=== PATIENT | female | born 1980 | race Caucasian/White ===

== ENCOUNTER 2022-05-31 02:28 | Emergency (ER) | payer OTHER ==
[~2022-05-31] VITALS: Ht 170.2 cm; Wt 90.9 kg
[2022-05-31 02:48] VITALS: BP 125/80
[2022-05-31] MEDS ORDERED: TETANUS-DIPTH-ACEL PERTUSSIS 0.5ML SYR Tdap IM ONE (03:30)
[2022-05-31] MEDS ORDERED: ACETAMINOPHEN 325 MG TAB PO ONE (04:15)
== END 2022-05-31 04:21 | disposition home or self-care (01) ==
LOC: ER 02:32
DX: S61.214A Laceration without foreign body of right ring finger without damage to nail, initial encounter (principal); W26.8XXA Contact with other sharp object(s), not elsewhere classified, initial encounter; Y93.89 Activity, other specified; Y92.89 Other specified places as the place of occurrence of the external cause; Y99.8 Other external cause status
CPT/HCPCS: 12001; 90471; 90715

== ENCOUNTER 2024-09-09 03:38 | Emergency (ER) | payer OTHER ==
[~2024-09-09] VITALS: Ht 170.2 cm; Wt 114.1 kg
[2024-09-09] MEDS: SODIUM CHLORIDE 0.9% 1,000 ML IV ONE (03:45)
[2024-09-09 03:57] VITALS: BP 141/75; RESP 18; TEMP 98.1; O2SAT 97
[2024-09-09 04:13] VITALS: PULSE 88
--- NOTE | 2024-09-09 04:13 | ED.PDOC ---
History of Present Illness HPI Comments 43 year old female presents to ER with complaints of flu-like symptoms x 3 days. Patient reports that she has been experiencing dry cough, congestion, intermittent nausea and sore throat x 3 days with associated dizziness that started 2 hours prior to arrival to ER while she was walking upstairs in her house to go to sleep. She reports 7/10 sore throat pain, denying any other current pain. Denies use of medications for current symptoms. Patient presents to ER ambulatory on arrival, alert and oriented x4, with steady gait, in no distress. Denies headache, vision changes, confusion, neck pain, vomiting, shortness of breath, chest pain, palpitations, syncope, hemoptysis, abdominal pain, changes in urination/bm or any further symptoms/complaints Chief Complaint: Flu like Time Seen by MD: 03:56 Primary Care Provider: UNKNOWN Reviewed Notes: Nurses Notes, Medications, Allergies Past Medical History PAST MEDICAL HISTORY: Anxiety, Seizures (epilepsy) Past Medical History (Other): migraines Surgical History: Cholecystectomy, NEWSP[employer]GING [employer] History: Denies all NEWSP[employer]ER MANAGING [employer]OR Hx Family History Family History: Unknown Social History Smoker: Non-Smoker Alcohol: Denies ETOH Use Drugs: Denies Drug Use Lives In: Home Constitutional: No Symptoms Reported EENTM: See HPI Respiratory: See HPI Cardiovascular: No Symptoms Reported Gastrointestinal: See HPI Genitourinary: No Symptoms Reported Neurological: Other (As stated in HPI) Musculoskeletal: No Symptoms Reported Integumentary: No Symptoms Reported Allergic/Immunocompromised: others Hematologic/Lymphatic: No Symptoms Reported Endocrine: No Symptoms Reported Psychiatric: No symptoms Reported Physical Exam General Appearance: No Apparent Distress HEENT: Normal ENT Inspection, PERRL/EOMI, Pharynx Normal, TMs Normal Neck: Full Range of Motion, Non-Tender, Normal Respiratory: Chest Non-Tender, Lungs Clear, No Accessory Muscle Use, No Respiratory Distress, Normal Breath Sounds Cardiovascular: No Murmur, No Gallop, Regular Rate/Rhythm Breast Exam: Deferred Gastrointestinal: NOT DONE Genitalia: Deferred Pelvic: Deferred Rectal: Deferred Extremities: Normal capillary refill, Normal range of motion Neurologic: Alert, assembler watch train II-XII nml as Tested, No Motor Deficits, Normal Affect, Normal Mood, No Sensory Deficits Cerebellar Function: Normal Reflexes: Normal Skin: Dry, Normal Color, Warm Peripheral Pulses: 2+ Radial (R), 2+ Radial (L), 2+ Brachial (R), 2+ Brachial (L) Lymphatic: No Adenopathy Was a procedure done? Was a procedure done?: No Sedation Sedation?: No EKG EKG : Pulse Rate (adult): 88 Cardiac Rhythm: NSR (SR) Fever Differential Dx Differential Diagnosis: Pneumonia, Pulmonary Embolus, Sepsis, Pharyngitis, Other (COVID-19, INFLUENZA, [place]) X-Ray, Labs, Meds, VS Vital Signs Date Time Temp Pulse Resp B/P (MAP) Pulse Ox O2 Delivery O2 Flow Rate FiO2 09/09/24 04:13 88 09/09/24 04:08 88 09/09/24 03:57 98.1 98 18 141/75 (97) 97 98.1 09/09/24 03:57 98.1 98 18 141/75 (97) 97 Lab Test 09/09/24 04:30 09/09/24 04:19 09/09/24 04:05 09/09/24 03:54 Range/Units Urine Color Light-yellow Yellow Urine Clarity Clear Clear Urine pH 6.0 5.0-9.0 Urine Specific [place] 1.016 1.001-1.035 Urine Protein Negative Negative Urine Ketones Negative Negative Urine Blood Negative Negative /uL Urine Nitrite Negative Negative Urine Bilirubin Negative Negative Urine Urobilinogen Normal Negative mg/dL Urine Leukocyte Esterase Negative Negative /uL Urine RBC 2 0 - 4 /hpf Urine Microscopic WBC 1 0-5 /HPF Urine Squamous Epithelial Cells Few <5 /hpf Urine Bacteria Few H None Seen /hpf Urine Glucose Normal Normal mg/dL White Blood Count 10.1 4.4-10.8 10^3/uL Red Blood Count 4.25 4.0-5.20 10^6/uL Hemoglobin 13.4 12.2-16.2 g/dL Hematocrit 39.6 36.0-46.0 % Mean Corpuscular Volume 93.1 80.0-100.0 fL Mean Corpuscular Hemoglobin 31.5 28.0-32.0 pg Mean Corpuscular Hemoglobin Concent 33.8 32.0-36.0 g/dL Red Cell Distribution Width 13.5 11.8-14.3 % Platelet Count 358 140-450 10^3/uL Mean Platelet Volume 6.3 L 6.9-10.8 fL Neutrophils (%) (Auto) 59.6 37.0-80.0 % Lymphocytes (%) (Auto) 34.3 10.0-50.0 % Monocytes (%) (Auto) 4.1 0.0-12.0 % Eosinophils (%) (Auto) 1.6 0.0-7.0 % Basophils (%) (Auto) 0.4 0.0-2.0 % Neutrophils # (Auto) 6.0 1.6-8.6 10 ^3/uL Lymphocytes # (Auto) 3.5 0.4-5.4 10 ^3/uL Monocytes # (Auto) 0.4 0-1.3 10 ^3/uL Eosinophils # (Auto) 0.2 0-0.8 10 ^3/uL Basophils # (Auto) 0 0-0.2 10 ^3/uL Nucleated Red Blood Cells 0.1 % Sodium Level 138 136-145 mmol/L Potassium Level 3.6 3.5-5.1 mmol/L Chloride Level 105 98-107 mmol/L Carbon Dioxide Level 24 20-31 mmol/L Anion Gap 9 5-15 Blood Urea Nitrogen 13 9-23 mg/dL Creatinine 0.80 0.550-1.02 mg/dL Glomerular Filtration Rate Calc 93 >90 mL/min BUN/Creatinine Ratio 16.3 10.0-20.0 Serum Glucose 110 H 74-106 mg/dL Calcium Level 9.3 8.7-10.4 mg/dL Troponin I High Sensitivity < 3 L </=34 ng/L Influenza Type A Antigen Negative Negative Influenza Type B Antigen Negative Negative SARS-CoV-2 Antigen (Rapid) Negative NEGATIVE POC Glucose 115 H 70-106 mg/dl Current Medications Medications (Trade) Dose Ordered Sig/[place] Route Start Time Stop Time Status Last Admin Sodium Chloride 1,000 ml @ 1,000 mls/hr Q1H ONCE IV 09/09/24 04:00 09/09/24 04:59 DC 09/09/24 03:45 Meclizine HCl (Antivert Tablet) 50 mg ONCE ONCE PO 09/09/24 04:00 09/09/24 04:02 DC 09/09/24 05:17 Acetaminophen (Tylenol Tablet) 650 mg ONCE ONCE PO 09/09/24 04:00 09/09/24 04:02 DC 09/09/24 05:17 PATIENT: YULIYA REYNOSO B[place]TONT: [id number]: [id number] : 1980 LOC: ER ROOM / BED: / AGE / SEX: 43 / F ADM STATUS: REG ER SERVICE [id number] ORDERING PHYSICIAN: OBDULIO HYMAN PROCEDURE(s): CXR1 - CHEST XRAY 1 VIEW REASON: cough ORDER NUMBER(s): [id number], ACCESSION NUMBER(s): [id number] EXAM: XR Chest, 1 View CLINICAL INDICATION: cough TECHNIQUE: Frontal view of the chest. COMPARISON: None FINDINGS: LUNGS AND PLEURAL SPACES: Unremarkable. No consolidation. No pneumothorax. HEART: Unremarkable. No cardiomegaly. MEDIASTINUM: Unremarkable. Normal mediastinal contour. BONES/JOINTS: Unremarkable. No acute fracture. OTHER FINDINGS: . . IMPRESSION: No acute cardiopulmonary process. ATED BY: LANDY MCCALLUM MD DICTATED DATE/TIME: 09/09/24503 SIGNED BY: LANDY MCCALLUM MD SIGNED DATE/TIME: 09/09/24503 CC: CBC AND BMP REVIEWED WITHOUT ANY SIGNIFICANT ABNORMALITY CHEST X-RAY REVIEWED SWAB RESULTS REVIEWED- NEGATIVE URINALYSIS REVIEWED WITHOUT ANY SIGNIFICANT ABNORMALITIES EKG REVIEWED TROPONIN REVIEWED - NEGATIVE HEP LOCK IV ORDERED NS 1 LITER IV ORDERED MECLIZINE 50 MG P.O. ORDERED TYLENOL 650 MG P.O. ORDERED PATIENT HAD IMPROVEMENT IN SYMPTOMS AND IN NO DISTRESS PRIOR TO DISCHARGE DIET EDUCATION DISCUSSED ADVISED TO F/U WITH PCP IN 1-2 DAYS PATIENT ALERT AND ORIENTED X 4 PRIOR TO DISCHARGE. PATIENT VERBALIZED UNDERSTANDING AND AGREEABLE WITH CURRENT PLAN OF CARE ADVISED TO RETURN TO ER IMMEDIATELY IF SYMPTOMS WORSEN Images Reviewed?: Images reviewed and evaluated by me Time of 1ST Reevaluation: 04:10 Reevaluation 1ST: N/A Patient Education/Counseling: Diagnosis, Treatment, Prognosis, Need For Follow Up Family Education/Counseling: No Family Present Departure 1 Departure Time of Disposition: 05:02 Impression: Primary Impression: Viral URI Additional Impression: Gastroenteritis Disposition: 01 HOME / SELF CARE / HOMELESS Condition: Stable e-Prescriptions Ondansetron Odt 4MG Tab (ZOFRAN PO) 4 Mg Tb 4 MG PO Q8HPRN, #14 TAB 0 Refills ODT TAB-DISSOLVE IN MOUTH, THEN SWALLOW Prov: OBDULIO HYMAN 09/09/24 Acetaminophen (Acetaminophen) 500 Mg Tab 500 MG PO Q4HPRN, #30 TAB 0 Refills Prov: OBDULIO HYMAN 09/09/24 Discharged With: Self Critical Care Note Critical Care Time?: No Stability Stability form required: No Heart Score Heart Score: Heart Score Response (Comments) Value History N/A 0 EKG N/A 0 Age N/A 0 Risk Factors N/A 0 Troponin N/A 0 Total 0 OBDULIO HYMAN Sep 09, 2024 04:13
[2024-09-09 04:38] LABS: Basophils # (auto) 0 10 ^3/uL (0-0.2); Basophils % (auto) 0.4 % (0.0-2.0); Eosinophils # (auto) 0.2 10 ^3/uL (0-0.8); Eosinophils % (auto) 1.6 % (0.0-7.0); Hematocrit 39.6 % (36.0-46.0); Hemoglobin 13.4 g/dL (12.2-16.2); Lymphocytes # (auto) 3.5 10 ^3/uL (0.4-5.4); Lymphocytes % (auto) 34.3 % (10.0-50.0); Mean Corpuscular Hemoglobin 31.5 pg (28.0-32.0); Mean Corpuscular Hgb Conc. 33.8 g/dL (32.0-36.0); Mean Corpuscular Volume 93.1 fL (80.0-100.0); Monocytes # (auto) 0.4 10 ^3/uL (0-1.3); Monocytes % (auto) 4.1 % (0.0-12.0); Neutrophils % (auto) 59.6 % (37.0-80.0); Nucleated Red Blood Cells % 0.1 %; Platelet Count (auto) 358 10^3/uL (140-450); Red Blood Cells 4.25 10^6/uL (4.0-5.20); Red Cell Distribution Width 13.5 % (11.8-14.3); White Blood Cell 10.1 10^3/uL (4.4-10.8)
[2024-09-09 04:40] LABS: Urine Bacteria FEW /hpf (None Seen); Urine Blood Negative /uL (Negative); Urine Clarity Clear (Clear); Urine Color Light-Yellow (Yellow); Urine Protein, UAD Negative (Negative); Urine Specific Gravity 1.016 (1.001-1.035); Urine Squamous Epithelial Cell FEW /hpf (<5); Urine Urobilinogen Normal (Negative); Urine WBC 1 /HPF (0-5)
[2024-09-09 04:45] LABS: Chloride 105 mmol/L (98-107); Potassium 3.6 mmol/L (3.5-5.1); Sodium 138 mmol/L (136-145)
[2024-09-09 04:46] LABS: Anion Gap 9 (5-15); Carbon Dioxide 24 mmol/L (20-31)
[2024-09-09 04:47] LABS: Calcium 9.3 mg/dL (8.7-10.4)
[2024-09-09 04:52] LABS: BUN/Creatinine Ratio 16.3 (10.0-20.0); Blood Urea Nitrogen 13 mg/dL (9-23); Glucose 110 mg/dL (74-106)
[2024-09-09 05:02] LABS: COVID19 ANTIGEN SOFIA FIA NEGATIVE (NEGATIVE); Rapid Influenza A Negative (Negative); Rapid Influenza B Negative (Negative)
--- NOTE | 2024-09-09 05:06 | DVH ---
EXAM: XR Chest, 1 View CLINICAL INDICATION: cough TECHNIQUE: Frontal view of the chest. COMPARISON: None FINDINGS: LUNGS AND PLEURAL SPACES: Unremarkable. No consolidation. No pneumothorax. HEART: Unremarkable. No cardiomegaly. MEDIASTINUM: Unremarkable. Normal mediastinal contour. BONES/JOINTS: Unremarkable. No acute fracture. OTHER FINDINGS: . . IMPRESSION: No acute cardiopulmonary process.
[2024-09-09] MEDS ORDERED: ACET500T58 PO (05:08)
[2024-09-09] MEDS ORDERED: ZOFR4T PO (05:08)
[2024-09-09] MEDS: ACETAMINOPHEN 325 MG TAB PO ONE (05:17)
[2024-09-09] MEDS: MECLIZINE HCL 25 MG TAB PO ONE (05:17)
--- NOTE | 2024-09-09 09:09 | ECG ---
[facility] Test Date: 2024-09-09 Test Time: 04:08:02 Pat Name: YULIYA REYNOSO Department: ED Room: Gender: F Life Claims Examiner: ED : 1980 Requested By: OBDULIO HYMAN Order Number: [id number] Reading MD: Nikhil Price Measurements Intervals [place] Rate: 88 P: 53 TN: 168 QRS: 95 QRSD: 90 T: 57 QT: 372 QTc: 450 Interpretive Statements Sinus rhythm Borderline right axis deviation Baseline wander in lead(s) V2 Electronically Signed On 09-09-2024 15:14:52 PST by Nikhil Price Please click the below link to view image of tracing.
== END 2024-09-09 06:38 | disposition home or self-care (01) ==
LOC: ER 03:38
DX: J06.9 Acute upper respiratory infection, unspecified (principal); B97.89 Other viral agents as the cause of diseases classified elsewhere; K52.9 Noninfective gastroenteritis and colitis, unspecified; G43.909 Migraine, unspecified, not intractable, without status migrainosus; R07.89 Other chest pain; Z90.49 Acquired absence of other specified parts of digestive tract; Z20.822 Contact with and (suspected) exposure to COVID-19
CPT/HCPCS: 36415; 71045; 80048; 81001; 82962; 84484; 85025; 87426; 87804; 93005; 96360; 99285; J7030; J8597